=== PATIENT | female | born 1975 | race African-American/Black ===

== ENCOUNTER 2019-09-10 14:30 | Emergency (ER) | payer SELFPAY ==
[2019-09-10] MEDS ORDERED: ACETAMINOPHEN 325 MG TABLET (FP) PO ONE (14:46)
[2019-09-10] MEDS ORDERED: ONDANSETRON *ODT* 4 MG TABLET SL ONE (14:46)
[2019-09-10] MEDS ORDERED: ONDANSETRON *ODT* 4 MG TABLET ONE (14:47)
[2019-09-10 14:48] VITALS: BP 116/83; PULSE 92; TEMP 99.2; BMI 31.4
--- NOTE | 2019-09-10 14:50 | PDOC ---
History of Present Illness - General Stated Complaint: Nausea/Vomiting/COUGH/FEVER Time Seen by Provider: 09/10/19 14:45 History Source: Patient Exam Limitations: No Limitations Past History - Travel Traveled outside of the country in the last 30 days: No Close contact w/someone who was outside of country & ill: No - Past Medical History Allergies/Adverse Reactions: Allergies Allergy/AdvReac Type Severity Reaction Status Date / Time Penicillins Allergy Verified 09/10/19 14:40 Home Medications: Ambulatory Orders Ondansetron [Zofran Odt -] 4 mg SL TID #10 od.tablet 09/10/19 Review of Systems - Review of Systems Able to Perform ROS?: Yes Is the patient limited [place] proficient: No Constitutional: Yes: Fever. No: Chills, Weakness HEENTM: Yes: Nose Congestion, Throat Pain Respiratory: Yes: Cough. No: Shortness of Breath, Wheezing Cardiac (ROS): No: Chest Tightness ABD/GI: Yes: Nausea. No: Diarrhea, Vomiting Neurological: Yes: Headache *Physical Exam - Physical Exam General Appearance: Yes: Nourished, Appropriately Dressed. No: Apparent Distress HEENT: positive: EOMI, PUNEET, Tonsillar Erythema. negative: Pharyngeal Erythema, Tonsillar Exudate Neck: positive: Trachea midline, Supple. negative: Tender, Rigid, Lymphadenopathy (R), Lymphadenopathy (L) Respiratory/Chest: positive: Lungs Clear, Normal Breath Sounds. negative: Respiratory Distress, Accessory Muscle Use, Rales, Stridor, Wheezing Cardiovascular: positive: Regular Rhythm, Regular Rate, S1, S2 (present). negative: Murmur Integumentary: positive: Normal Color, Dry, Warm Neurologic: positive: sequins winder II-XII NML intact, Fully Oriented, Alert, Normal Mood/Affect, Normal Response Medical Decision Making - Medical Decision Making 09/10/19 14:48 HPI: The patient is a 44 y/o F with no past medical history, who presents for cough, sore throat, nausea, headache and subjective fevers for 2 days. The patient has no known exposure to coronavirus. (-) Recent travel. They are concerned they have coronavirus and present for testing. (-) difficulty breathing, shortness of breath, chest pain, lightheadedness, dizziness, vomiting, and diarrhea. A/P: Cough/Sore throat Patient has no past medical history, denies recent travel and known COVID exposure. Patient does not meet criteria for COVID testing at this time. Will preform strep test; results negative Tylenol and zofran given with relief of symptoms We will refer the patient to outpatient testing clinics in the [facility] for further monitoring of their symptoms. Strict return precautions given. Instructed that if they should have shortness of breath, chest pain or difficulty breathing to return to the emergency room for further management and treatment. Recommend self-isolation for 14 days given symptoms. Discharge home I discussed the physical exam findings, ancillary test results and final diagnoses with the patient. I answered all of the patient's questions. The patient was satisfied with the care received and felt comfortable with the discharge plan and treatment plan. The Patient agrees to follow up with the primary care physician/specialist within 24-72 hours. Return precautions were given. Discharge - Discharge Information Problems reviewed: Yes Clinical Impression/Diagnosis: URI (upper respiratory infection) Qualifiers: URI type: unspecified viral URI Qualified Code(s): J06.9 - Acute upper respiratory infection, unspecified Condition: Stable Disposition: HOME - Admission No - Follow up/Referral Referrals: [facility] [place] [Provider Group] - Patient Discharge Instructions Patient Printed Discharge Instructions: [facility]-Coronavirus Instructions Additional Instructions: You were seen for your cough/sore throat and possible Small virus (COVID-19). Your strep test was negative Please call the [facility] [place] to make an appointment for a test [phone] Take Tylenol 650mg every 4 hours as needed for fever or pain You may take the zofran every 8 hours as needed for nausea. You may take robitussin or other over the counter cough syrup. Follow the dosing instructions on the bottle. Warm tea, honey, and salt water gargles may help your symptoms. Please pretend like you tested positive for COVID and self quarantine for two weeks and follow up with your primary care doctor and the department of health. Return to the ER for shortness of breath, difficulty breathing, chest pain, or if you have any changes in your symptoms. Usted fue visto por bañuelos tos / dolor de garganta y posible virus Small (COVID- 19). Tu prueba de estreptococo fue negativa Ll[facility] al [facility] para programar [place] karla para un examen [phone] [place] Tylenol 650mg cada 4 horas segn sea necesario para la fiebre o el dolor. Puede rich el zofran cada 8 horas segn sea necesario para las nuseas. Puede rich robitussin u otro jarabe para la tos de venta megan. Siga las instrucciones de dosificacin en la botella. El t tibio, la miel y las grgaras de agua salada pueden ayudar con yue sntomas. Imagine que yanick positivo por COVID y se puso en cuarentena nena dos semanas y aman un seguimiento con bañuelos mdico de atencin primaria y el departamento de alisa. Regrese a la andrew de emergencias por falta de aliento, dificultad para respirar, dolor en el pecho o si tiene algn cambio en yue sntomas. Print Language: CANADIAN - Post Discharge Activity Work/Back to School Note: Back to Work
== END 2019-09-10 16:00 | disposition home or self-care (01) ==
LOC: JER 14:30
DX: J06.9 Acute upper respiratory infection, unspecified (principal); B97.89 Other viral agents as the cause of diseases classified elsewhere; Z88.0 Allergy status to penicillin
CPT/HCPCS: 87070; 87880; 99283-25; Q0162

== ENCOUNTER 2021-01-18 17:15 | Emergency (ER) | payer SELFPAY ==
[2021-01-18 17:42] VITALS: TEMP 98.7; BMI 30.5
[2021-01-18] MEDS ORDERED: ACETAMINOPHEN 1000 MG/100 ML VIAL (NON FORMULARY) IVPB ONE (18:41)
[2021-01-18] MEDS ORDERED: SODIUM CHLORIDE 0.9% 500 ML INFUS.BAG IV ONE ×2 (18:41→21:35)
[2021-01-18] MEDS ORDERED: ONDANSETRON 4 MG/2 ML VIAL IVPUSH ONE (18:41)
[2021-01-18] MEDS ORDERED: ONDANSETRON 4 MG/2 ML VIAL ONE (19:24)
[2021-01-18] MEDS ORDERED: ACETAMINOPHEN INJECTION 100 ML IVPB ONE (19:24)
[2021-01-18 20:03] LABS: BASO % 0.7 % (0-2.0); EOS % 0.4 % (0-4.5); HEMATOCRIT 38.9 % (32.4-45.2); LYMPH % 27.2 % (8-40); MCH 28.7 pg (25.7-33.7); MCHC 33.4 g/dl (32.0-36.0); MEAN CELL VOLUME 85.9 fl (80-96); MEAN PLT VOLUME 8.7 fl (7.5-11.1); MONO % 7.5 % (3.8-10.2); NEUT % 64.2 % (42.8-82.8); PLATELET COUNT 246 10^3/uL (134-434); RBC 4.53 M/mm3 (3.60-5.2); WHITE BLOOD COUNT 9.9 K/mm3 (4.0-10.0)
[2021-01-18 20:07] LABS: PH,URINE >= 9.0 (5.0-8.0); URINE APPEARANCE CLEAR; URINE BILIRUBIN NEGATIVE (NEGATIVE); URINE COLOR YELLOW; URINE GLUCOSE (UA) NEGATIVE (NEGATIVE); URINE KETONE NEGATIVE (NEGATIVE); URINE LEUK ESTERASE NEGATIVE (NEGATIVE); URINE NITRITE NEGATIVE (NEGATIVE); URINE PROTEIN NEGATIVE (NEGATIVE); URINE UROBILINOGEN 0.2 mg/dL (0.2-1.0)
[2021-01-18 20:10] LABS: HCG,QUALITATIVE URINE Negative
[2021-01-18 20:24] LABS: ALBUMIN 3.7 g/dl (3.4-5.0); BLOOD UREA NITROGEN 11.2 mg/dL (7-18); CALCIUM 9.1 mg/dL (8.5-10.1)
[2021-01-18 20:27] LABS: CREATININE 0.8 mg/dL (0.55-1.3)
[2021-01-18 20:29] LABS: BILIRUBIN,TOTAL 0.4 mg/dL (0.2-1); TOT PROT 7.8 g/dl (6.4-8.2)
[2021-01-18] MEDS ORDERED: DICYCLOMINE HCL 20 MG/2 ML AMPUL IM ONE (22:22)
[2021-01-18] MEDS ORDERED: DICYCLOMINE HCL 10 MG CAPSULE ONE (22:33)
[2021-01-18] MEDS ORDERED: DICYCLOMINE HCL 10 MG CAPSULE PO ONE (22:35)
[2021-01-18 22:46] VITALS: BP 103/70; PULSE 60
[2021-01-19 14:07] LABS: SARS-CoV-2 NAA Not Detected (Not Detected)
== END 2021-01-18 22:47 | disposition home or self-care (01) ==
LOC: JER 17:15
PROC: 3E0333Z Introduction of Anti-inflammatory into Peripheral Vein, Percutaneous Approach (ICD-10-PCS; principal; 2021-01-18)
PROC: 3E033GC Introduction of Other Therapeutic Substance into Peripheral Vein, Percutaneous Approach (ICD-10-PCS; 2021-01-18)
DX: R19.7 Diarrhea, unspecified (principal)
CPT/HCPCS: 36415; 80053; 81003; 84703; 85025; 87086; 87186; 99284-25; C9803; J0131; U0003; U0005